=== PATIENT | male | born 1955 | race Caucasian/White ===

== ENCOUNTER 2021-07-15 15:07 | Emergency (ER) | payer OTHER ==
--- NOTE | 2021-07-15 15:29 | ERPHSYRPT ---
- History of Present Illness Time Seen by Provider: 07/15/21 15:15 Source: patient Exam Limitations: no limitations Patient Subjective Stated Complaint: pt here for laceration to left side of head, states a grain bin fan fell on hes head, stats it knocked him down, no loc Triage Nursing Assessment: pt alert, walked in, resp easy, skin w/d/p, has 3 1/2 laceration to left side of head, no active bleeding. has skin tears to left arm and wrist Physician History: This is a 66-year-old white male who suffered a laceration to his scalp on the left side when a fan from his green vehicle came apart and hit him in the head. He also has some abrasions and skin tears to the dorsal aspect of his left hand and wrist. Patient states he did not lose consciousness. He is not on any medication he states his tetanus status is up-to-date. Occurred: just prior to arrival Severity: mild Head Injury Location: parietal (Left side) Method of Injury: other (Equipment came apart hitting him in the head from his grain vehicle) Loss of Consciousness: no loss of consciousness Associated Symptoms: denies symptoms Allergies/Adverse Reactions: No Known Drug Allergies Allergy (Verified 07/15/21 15:16) Home Medications: No Home Meds [No Home Meds] 1 shirley VIKTOR 03/29/15 [History] Hx Tetanus, Diphtheria Vaccination/Date Given: No Hx Influenza Vaccination/Date Given: No Hx Pneumococcal Vaccination/Date Given: No Travel Risk - International Travel Have you traveled outside of the country in past 3 weeks: No - Coronavirus Screening Are you exhibiting any of the following symptoms?: No Close contact with a COVID-19 positive Pt in past 14-21 Days: No - Vaccine Status Have you recieved a Covid-19 vaccination: Yes 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 Dates if Unknown: ? - Review of Systems Constitutional: No Symptoms Eyes: No Symptoms Ears, Nose, & Throat: No Symptoms Respiratory: No Symptoms Cardiac: No Symptoms Abdominal/Gastrointestinal: No Symptoms Genitourinary Symptoms: No Symptoms Musculoskeletal: No Symptoms Skin: Other (Laceration left side scalp, abrasions to dorsal aspect left hand and wrist) Neurological: No Symptoms Psychological: No Symptoms Endocrine: No Symptoms Hematologic/Lymphatic: No Symptoms Immunological/Allergic: No Symptoms All Other Systems: Reviewed and Negative - Past Medical History Pertinent Past Medical History: No GI Medical History: Hernia - Past Surgical History Past Surgical History: Yes Gastrointestinal: Hernia Repair Other Surgical History: surg to jaw - Social History Smoking Status: Never smoker Exposure to second hand smoke: No Drug Use: none Patient Lives Alone: No - Nursing Vital Signs Nursing Vital Signs: Initial Vital Signs Temperature 97.0 F 07/15/21 15:13 Pulse Rate 70 07/15/21 15:13 Respiratory Rate 16 07/15/21 15:13 Blood Pressure 127/80 07/15/21 15:13 O2 Sat by Pulse Oximetry 95 07/15/21 15:13 Pain Scale Pain Intensity 0 - Lena Coma Score Best Eye Response (Lena): (4) open spontaneously Best Verbal Response (Woodson): (5) oriented Best Motor Response (Woodson): (6) obeys commands Woodson Total: 15 - Physical Exam General Appearance: no apparent distress, alert, anxiety Head Injury: active bleeding (3-1/2 inch incision left parietal scalp.), tenderness Eye Exam: bilateral eye: normal inspection, PERRL, EOMI ENT Exam: airway nml, nml ext.inspection, No evidence of ENT injury Neck Exam: supple, trachea midline, full range of motion, normal alignment, normal inspection Cardiovascular/Respiratory Exam: chest non-tender, no respiratory distress Gastrointestinal/Abdominal Exam: non tender Rectal Exam: not done Back Exam: normal range of motion, No CVA tenderness, No vertebral tenderness Extremity Exam: normal range of motion (Abrasions, multiple dorsal aspect left hand and wrist) Mental Status Exam: alert, oriented x 3, 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 Evaluation was performed to the base there was slow oozing from skin edge.) Irrigated: Yes Hibiclens Prep: Yes Wound Repaired With: Lizy (Total of 9 lizy were used to approximate the skin edges) - Course Nursing assessment & vital signs reviewed: Yes Ordered Tests: Active Orders 24 hr Category Date Time Status HEAD WITHOUT CONTRAST [CT] Stat Exams 07/15/21 15:31 Completed - Progress Progress: improved, pain not gone completely Progress Note: 07/15/21 16:47 CAT scan of the head without contrast shows no intracranial abnormality. There is no acute fractures. Counseled pt/family regarding: diagnosis, need for follow-up, rad results - Departure Departure Disposition: Home Clinical Impression: Head injury, Scalp laceration Condition: Stable Critical Care Time: No Referrals: DOCTOR,NO FAMILY [Primary Care Provider] - Additional Instructions: Keep current dressing in place. May remove dressings in 24 hours. After 24 hours may wash each of the sites with soap and water and apply thin layer of antibiotic ointment of choice daily. Continue the same process daily. Staple removal in 8 to 10 days. Prescriptions: Hydrocodone/APAP 5/325 [[place] 5/325 mg] 1 each PO Q8H PRN PRN #6 tablet MDD 3 PRN Reason: Pain
--- NOTE | 2021-07-15 16:45 | XRAY ---
Indication: Head injury. Multiple contiguous axial images obtained through the head without contrast. Comparison: None Age-appropriate global atrophy. No acute intracranial hemorrhage, abnormal extra-axial fluid collection, or mass effect. Fourth ventricle is midline without hydrocephalus. Left vertex demonstrates multiple scalp cutaneous clips. Bony calvarium intact. Incidental old left zygomatic arch fracture with fixation plate/screws. Inferior maxillary sinuses demonstrate mild mucosal thickening bilaterally. Remaining paranasal sinuses and mastoid air cells are clear. Impression: Left vertex scalp laceration. No acute intracranial abnormalities or acute fractures. Incidental bilateral maxillary sinus disease.
[2021-07-15 17:02] VITALS: BP 126/82; PULSE 88; O2SAT 97
== END 2021-07-15 17:03 | disposition home or self-care (01) ==
LOC: ED 15:07
DX: S01.01XA Laceration without foreign body of scalp, initial encounter (principal)
CPT/HCPCS: 12004; 70450; 99283

== ENCOUNTER 2022-11-30 13:36 | Emergency (ER) | payer MEDICARE ==
[2022-11-30] MEDS ORDERED: XYLOCAINE 1% HCL 20 ML MDV ONE ×2 (13:45→14:13)
[2022-11-30] MEDS ORDERED: XYLOCAINE 1% HCL 20 ML MDV IJ ONE (13:46)
[2022-11-30] MEDS: BACIGUENT PACKET TP ONE ×2 (14:00→14:12)
[2022-11-30] MEDS ORDERED: BACIGUENT PACKET ONE (14:00)
[2022-11-30] MEDS ORDERED: Rocephin 1000 MG INJ IM ONE (14:08)
[2022-11-30] MEDS ORDERED: Rocephin 1000 MG INJ ONE (14:12)
--- NOTE | 2022-11-30 14:15 | ERPHSYRPT ---
- History of Present Illness Time Seen by Provider: 11/30/22 14:15 Exam Limitations: no limitations Patient Subjective Stated Complaint: Laceration to right basurto. Patient states he cut it on some medal. Triage Nursing Assessment: Patient ambulated back to ER. He is alert and oriented. No SOB. 2 bandaids noted to right basurto. Bandaids removed. 3cm X 0.6cm laceration noted. Small amount of active bleeding. Physician History: Patient is a 67-year-old male presents to our ED with his for evaluation of puncture wound with laceration to the right anterior basurto. Injury occurred just prior to arrival. Patient denies foreign body sensation. He declined a x-ray to look for foreign body. Patient states that the metal that lacerated/created the puncture wound is thick and would not yield a residual/foreign body into his tissue. Therefore patient declined x-ray. Pain described as an ache that is localized. No radiation. Injury occurred just prior to arrival. Patient had a similar wound on the contralateral leg which was treated at home. Tetanus is up-to-date. No other injuries reported. Patient/ voiced no other complaints or concerns at this time. Portions of this note were created with voice recognition technology. There may be grammatical, spelling, punctuation or sound alike errors Timing/Duration: today Severity: moderate Modifying Factors: Improves With: nothing Associated Symptoms: denies symptoms Allergies/Adverse Reactions: No Known Drug Allergies Allergy (Verified 11/30/22 13:45) Home Medications: Pantoprazole 20 mg [Protonix 20MG Tablet] 1 tab PO DAILY 11/30/22 [History] Hx Tetanus, Diphtheria Vaccination/Date Given: No Hx Influenza Vaccination/Date Given: No Hx Pneumococcal Vaccination/Date Given: No Immunizations Up to Date: No Travel Risk - International Travel Have you traveled outside of the country in past 3 weeks: No - Coronavirus Screening Are you exhibiting any of the following symptoms?: No Close contact with a COVID-19 positive Pt in past 14-21 Days: No - Vaccine Status Have you recieved a Covid-19 vaccination: Yes 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 Dates if Unknown: ? - Review of Systems Constitutional: No Symptoms, No Fever, No Chills Eyes: No Symptoms Ears, Nose, & Throat: No Symptoms Respiratory: No Symptoms, No Cough, No Dyspnea Cardiac: No Symptoms, No Chest Pain, No Edema, No Syncope Abdominal/Gastrointestinal: No Symptoms, No Abdominal Pain, No Nausea, No Vomiting, No Diarrhea Genitourinary Symptoms: No Symptoms, No Dysuria Musculoskeletal: No Symptoms, No Back Pain, No Neck Pain Skin: No Symptoms, No Rash Neurological: No Symptoms, No Dizziness, No Focal Weakness, No Sensory Changes Psychological: No Symptoms Endocrine: No Symptoms Hematologic/Lymphatic: No Symptoms Immunological/Allergic: No Symptoms All Other Systems: Reviewed and Negative - Past Medical History Pertinent Past Medical History: Yes GI Medical History: Hernia Other Medical History: broken left jaw - Past Surgical History Past Surgical History: Yes Gastrointestinal: Hernia Repair Other Surgical History: left surg to jaw - Social History Smoking Status: Never smoker Exposure to second hand smoke: No Drug Use: none Patient Lives Alone: No - Nursing Vital Signs Nursing Vital Signs: Initial Vital Signs Temperature 98.1 F 11/30/22 13:46 Pulse Rate 70 11/30/22 13:46 Respiratory Rate 17 11/30/22 13:46 Blood Pressure 133/80 11/30/22 13:46 O2 Sat by Pulse Oximetry 96 11/30/22 13:46 Pain Scale Pain Intensity 3 - Physical Exam General Appearance: no apparent distress, alert Eye Exam: PERRL/EOMI, eyes nml inspection Neck Exam: normal inspection, full range of motion Respiratory Exam: normal breath sounds, airway intact, No respiratory distress, No stridor Cardiovascular Exam: regular rate/rhythm, normal peripheral pulses, capillary refill <2 sec Back Exam: normal inspection, normal range of motion, No CVA tenderness, No v ertebral tenderness Extremity Exam: normal inspection, normal range of motion, pelvis stable Neurologic Exam: alert, oriented x 3, cooperative, normal mood/affect, sensation nml, No motor deficits Skin Exam: normal color, warm, dry, other (3 cm laceration with puncture wound to the right anterior middle third basurto), No rash Lymphatic Exam: No adenopathy SpO2 Interpretation: normal SpO2: 96 O2 Delivery: Room Air Procedures - Laceration/Wound Repair Other Time of Procedure: 14:12 Wound Location: Right (Right leg) Wound Length (cm): 3 Wound's Depth, Shape: superficial Wound Explored: clean Irrigated: Yes Hibiclens Prep: Yes Anesthesia: 1% Lidocaine Volume Anesthetic (ccs): 5 Wound Debrided: No debridement indicated Wound Repaired With: Steri-strips Progress: 11/30/22 14:14 Patient reassessed. Patient neurovascular intact pre and post procedure. - Course Nursing assessment & vital signs reviewed: Yes Ordered Tests: Active Orders 24 hr Category Date Time Status Sutures STAT Care 11/30/22 13:55 Active Wound Care STAT Care 11/30/22 13:55 Active Medication Summary Discontinued Medications Generic Name Dose Route Start Last Admin Trade Name Dann PRN Reason Stop Dose Admin Bacitracin Zinc 0.9 each 11/30/22 13:59 11/30/22 14:00 Bacitracin Packet 1 Each Pckt TP 11/30/22 14:00 0.9 each STAT ONE Administration Bacitracin Zinc Confirm 11/30/22 14:00 Bacitracin Packet 1 Each Pckt Administered 11/30/22 14:01 Dose 1 each .ROUTE .STK-MED ONE Ceftriaxone Sodium 1,000 mg 11/30/22 14:08 Ceftriaxone Sodium 1000 Mg Inj Vial IM 11/30/22 14:09 STAT ONE Lidocaine HCl 5 ml 11/30/22 13:46 11/30/22 13:47 Lidocaine Hcl 1% 20 Ml Mdv 20 Ml Ml IJ 11/30/22 13:47 5 ml STAT ONE Administration Lidocaine HCl Confirm 11/30/22 13:45 Lidocaine Hcl 1% 20 Ml Mdv 20 Ml Ml Administered 11/30/22 13:46 Dose 5 ml .ROUTE .STK-MED ONE - Progress Progress: improved Progress Note: 67-year-old male presents to our ED with a puncture wound/superficial laceration to the right anterior basurto. Tetanus up-to-date. Due to the fact that patient has a puncture wound we will not suture the wound. Laceration closed with Steri-Strips. Patient received IM Rocephin in our ED. A prescription for Keflex forwarded to patient's pharmacy. Patient's presenting problem is acute. Complexity of problems addressed is low. Problem is acute and uncomplicated. No critical care time. Age gender, PMH/PQ , (co-morbidities that complicate presentation) , med class, PSH, (smoker) method of arrival, CC (acute, chronic or acute on chronic), State COPA level and why or if critical. vitals, Significant ROS/PE findings, working diagnoses, Complexity of data reviewed and analyzed is none. Diagnosis was made based on history and physical exam. Risk of complication and or risk of morbidity/mortality of patient management is moderate. Patient received IM Rocephin. Patient received local injection for pain control. Lidocaine 1% used for pain control. Patient agrees to follow-up with his primary care doctor within 48 hours for reevaluation. Vital stable. Shared decision making model implemented for plan of care. 11/30/22 14:24 Counseled pt/family regarding: diagnosis, need for follow-up - Departure Departure Disposition: Home Clinical Impression: Puncture wound, Laceration Condition: Stable Critical Care Time: No Referrals: JACKIE PITTS MD [Primary Care Provider] - Follow up/PCP as directed Additional Instructions: Discharge/Care Plan FRANCIA CAO was seen on 11/30/22 in the Emergency Room. The patient was counseled regarding Diagnosis,Lab results, Imaging studies, need for follow up and when to return to the Emergency Room. Prescriptions given: Discharge Note I have spoken with the patient and/or caregivers. I have explained the patient's condition, diagnosis and treatment plan based on the information available to me at this time. I have answered the patient's and/or caregiver's questions and addressed any concerns. The patient and/or caregivers have as good understanding of the patient's diagnosis, condition and treatment plan as can be expected at this point. The vital signs have been stable. The patient's condition is stable and appropriate for discharge from the emergency department. The patient will pursue further outpatient evaluation with the primary care physician or other designated or consulting physician as outlined in the discharge instructions. The patient and/or caregivers are agreeable to this plan of care and follow-up instructions have been explained in detail. The patient and/or caregivers have received these instruction. The patient/and or caregivers are aware that any significant change in condition or worsening of symptoms should prompt an immediate return to this or the closest emergency department or call 911. Prescriptions: Cephalexin Mh 500 mg [Keflex 500 mg] 500 mg PO TID #21 cap
[2022-11-30 14:31] VITALS: BP 134/88; PULSE 68; O2SAT 97
== END 2022-11-30 14:35 | disposition home or self-care (01) ==
LOC: ED 13:36
DX: S81.811A Laceration without foreign body, right lower leg, initial encounter (principal); S81.831A Puncture wound without foreign body, right lower leg, initial encounter; W26.9XXA Contact with unspecified sharp object(s), initial encounter
CPT/HCPCS: 96372; 99283; J0696; A9270-GY

== ENCOUNTER 2024-11-13 14:24 | Emergency (ER) | payer MEDICARE ==
[2024-11-13 15:38] VITALS: TEMP 97.7
[2024-11-13 16:05] VITALS: BP 118/72; PULSE 71; RESP 16; O2SAT 97
[2024-11-13] MEDS ORDERED: BACIGUENT PACKET ONE (17:23)
[2024-11-13] MEDS: BACIGUENT PACKET TP ONE (17:25)
--- NOTE | 2024-11-13 17:26 | ERPHSYRPT ---
- History of Present Illness Time Seen by Provider: 11/13/24 15:16 Source: patient Exam Limitations: no limitations Patient Subjective Stated Complaint: "I was walking in the weeds and cut my leg open on something". Triage Nursing Assessment: Pt appears to ER with a [id number] laceration to left knee. Bleeding controlled. Denies pain. Normal ROM. Pt states he was walking in the weeds and tripped and fell down causing his knee to strike an un known sharp object causing the laceration to occur. Pt is alert and oriented x 3. Skin is pink, warm, and dry. Respirations are unlabored. Pt is communicable and oriented x 3. Believes michael is UTD, had another lacerations 2-3 years ago. Physician History: 69-year-old male updated with tetanus presented in the ER with a laceration left medial knee after he tripped on something and fell in the [place]. Patient does not know exactly what date he hit. There was bleeding initially but stopped with applying pressure. Patient has no difficulty ambulation. No bony tender ness. No injury anywhere else. 3 cm curved laceration right medial knee with exposed tendon and no obvious laceration. Fascia is cut. Cannot probe into the joint. No patellar or tibia/fibula/femoral condyle tenderness. Intact range of motion. Distal neurovascular intact. I have shared the picture of the wound, history with Dr. Alanis, recommended closure and will place patient on the antibiotics and he will evaluate patient outpatient. I have recommended x-ray left knee but patient/ do not want it and they do understand the risk of leaving foreign body in or any other acute findings which could be missed. Thoroughly washed and laceration is repaired. Placed in Hoang wrap. Started on Keflex and outpatient follow-up recommended. Discussed signs symptoms of wound infection needing return to ER which he seems understanding. Stable for discharge. Allergies/Adverse Reactions: No Known Drug Allergies Allergy (Verified 11/13/24 15:38) Home Medications: Pantoprazole 20 mg [Protonix 20MG Tablet] 20 mg pe PO DAILY 11/13/24 [History] Hx Tetanus, Diphtheria Vaccination/Date Given: Yes (believes so) Hx Influenza Vaccination/Date Given: No Hx Pneumococcal Vaccination/Date Given: No Immunizations Up to Date: No Travel Risk - International Travel Have you traveled outside of the country in past 3 weeks: No - Emerging Infectious Disease Are you exhibiting symptoms associated with any current EIDs: No - Review of Systems Constitutional: No Symptoms Ears, Nose, & Throat: No Symptoms Respiratory: No Symptoms Cardiac: No Symptoms Abdominal/Gastrointestinal: No Symptoms Musculoskeletal: Fall, Injury, Joint Pain Skin: Skin Lesions Neurological: No Symptoms - Past Medical History Pertinent Past Medical History: Yes Neurological History: No Pertinent History ENT History: No Pertinent History Cardiac History: No Pertinent History Respiratory History: No Pertinent History Endocrine Medical History: No Pertinent History Musculoskeletal History: No Pertinent History GI Medical History: Hernia History: No Pertinent History Psycho-Social History: No Pertinent History Male Reproductive Disorders: No Pertinent History Other Medical History: broken left jaw - Past Surgical History Past Surgical History: Yes Neuro Surgical History: No Pertinent History Cardiac: No Pertinent History Respiratory: No Pertinent History Gastrointestinal: Hernia Repair Genitourinary: No Pertinent History Musculoskeletal: No Pertinent History Male Surgical History: No Pertinent History Other Surgical History: surg to jaw - Social History Smoking Status: Never smoker Exposure to second hand smoke: No Drug Use: none - Social Determinants of Health Will the patient participate in the screening: Yes Do you worry about a steady place to live?: No Do you have any problems with any of the following?: No known problems In the past 12 months,have you had to go without utilities?: No Transportation Issues: No Has anyone in your support network made you feel unsafe?: No Have you or anyone in your house had to go w/o enough food: No - Nursing Vital Signs Nursing Vital Signs: Initial Vital Signs Pulse Rate 72 11/13/24 15:00 Respiratory Rate 17 11/13/24 15:00 Blood Pressure 113/71 11/13/24 15:00 O2 Sat by Pulse Oximetry 95 11/13/24 15:00 Pain Scale Pain Intensity 0 - Physical Exam General Appearance: no apparent distress Neck Exam: normal inspection, full range of motion Cardiovascular/Respiratory Exam: normal breath sounds, regular rate/rhythm Knees Exam: right knee: non-tender, normal inspection, normal range of motion, no evidence of injury, left knee: pain, soft tissue tenderness (Centimeter curved laceration medial.) Neuro/Tendon Exam: normal sensation, normal motor functions, normal tendon functions Mental Status Exam: alert, oriented x 3, cooperative Skin Exam: normal color SpO2 Interpretation: normal SpO2: 97 O2 Delivery: Room Air Procedures - Laceration/Wound Repair Left Medial Knee Time of Procedure: 17:22 Wound Location: Left, lower leg (knee) Wound Length (cm): 3 Wound's Depth, Shape: into muscle, flap Wound Explored: clean Irrigated: Yes Hibiclens Prep: Yes Anesthesia: 1% Lidocaine Volume Anesthetic (ccs): 6 Wound Repaired With: sutures Suture Size/Type: 3-0, prolene Number of Sutures: 5 Layer Closure?: No Sterile Dressing Applied?: Yes Splint Applied?: No Sling Applied?: No Ordered Tests: Medication Summary Discontinued Medications Generic Name Dose Route Start Last Admin Trade Name Freq PRN Reason Stop Dose Admin Bacitracin Zinc 0.9 each 11/13/24 17:20 11/13/24 17:25 Bacitracin Packet 1 Each Pckt TP 11/13/24 17:21 0.9 each STAT ONE Administration Bacitracin Zinc Confirm 11/13/24 17:23 Bacitracin Packet 1 Each Pckt Administered 11/13/24 17:24 Dose 1 each .ROUTE .[employer]-MED ONE - Progress Progress: improved Progress Note: 11/13/24 17:23 69-year-old male updated with tetanus presented in the ER with a laceration left medial knee after he tripped on something and fell in the [place]. Patient does not know exactly what date he hit. There was bleeding initially but stopped with applying pressure. Patient has no difficulty ambulation. No bony tenderness. No injury anywhere else. 3 cm curved laceration right medial knee with exposed tendon and no obvious laceration. Fascia is cut. Cannot probe into the joint. No patellar or tibia/fibula/femoral condyle tenderness. Intact range of motion. Distal neurovascular intact. I have shared the picture of the wound, history with Dr. Alanis, recommended closure and will place patient on the antibiotics and he will evaluate patient outpatient. I have recommended x-ray left knee but patient/ do not want it and they do understand the risk of leaving foreign body in or any other acute findings which could be missed. Thoroughly washed and laceration is repaired. Placed in Hoang wrap. Started on Keflex and outpatient follow-up recommended. Discussed signs symptoms of wound infection needing return to ER which he seems understanding. Stable for discharge. Complexity of problems addressed:Acute moderate. Amount of/complexity of data reviewed generalized: Limited Risk of complications associated with patient management: Mild to moderate Counseled pt/family regarding: diagnosis, need for follow-up Medical Desision Making - Independent Historian Additional History obtained from: Spouse - Discussion of managment Care discussed with:: specialist (Dr. Alanis orthopedic surgeon) Agreed on:: Treatment plan, need for follow-up Will see patient: In office - Diagnostic Testing Diagnostic test were ordered, analyzed, and reviewed by me: No - Risk of complications The pt has a mod risk of morbidity or mortality based on: Need for prescription drug management, Need for minor surgical intervention in patient with know risk factors - Departure Departure Disposition: Home Clinical Impression: Laceration of knee Condition: Stable Critical Care Time: No Referrals: JACKIE PITTS MD [Primary Care Provider] - Follow up with PCP 1 day PAULA ALANIS MD [ACTIVE STAFF] - Follow up/PCP as directed (Call for appointment for reevaluation in 1 to 2 days) Instructions: Laceration Repair With Stitches (DC) Additional Instructions: Temperature ice application. Avoid exertional activities. Takes pain medications as needed. Follow-up with primary care/orthopedics for reevaluation. Return to ER for increasing pain swelling redness, difficulty movements or if develop fever chills etc. Prescriptions: Hydrocodone/Acetaminophen [Hydrocodone-Acetamin 5-325 mg] 1 tab PO Q6HPRN PRN 3 Days #7 tablet MDD 4 PRN Reason: Pain Cephalexin Mh 500 mg [Keflex 500 mg] 500 mg PO TID #21 cap
== END 2024-11-13 18:00 | disposition home or self-care (01) ==
LOC: ED 14:24
DX: S81.012A Laceration without foreign body, left knee, initial encounter (principal); W01.10XA Fall on same level from slipping, tripping and stumbling with subsequent striking against unspecified object, initial encounter; Z79.891 Long term (current) use of opiate analgesic; Z79.899 Other long term (current) drug therapy
CPT/HCPCS: 12002; 99282; 99283; A9270-GY

== ENCOUNTER 2025-06-23 18:01 | Emergency (ER) | payer MEDICARE ==
--- NOTE | 2025-06-23 18:33 | ERPHSYRPT ---
- History of Present Illness Time Seen by Provider: 06/23/25 18:29 Source: patient Exam Limitations: no limitations Patient Subjective Stated Complaint: patient was grinding metal with normal glasses on, no safety glasses and got a piece of metal in right eye Triage Nursing Assessment: patient presents to ed via private vehicle, patient able to ambulate into ed without complication, patient alert and oriented x 4, patient's skin p/w/d, patient has redness noted to right eye, small black foreign object noted to right eye upon examination, patient denies blurry vision Physician History: 70-year-old male history of a hernia, on pantoprazole presents to our ED for evaluation of pain to his right eye. Patient reports that he was grinding metal with his corrective glasses. He was not wearing safety goggles. Patient reports that he has a piece of metal impaled in his eye. No other injuries reported. Patient has some blurriness in his right eye and foreign body sensation. Patient voices no other complaints or concerns at this time. Tetanus is up-to-date Portions of this note were created with voice recognition technology. There may be grammatical, spelling, punctuation or sound alike errors Timing/Duration: today Location: right eye Severity: none Apparent Injury: no Associated Symptoms: pain Visual Assistive Devices: Glasses Chemical Exposure: No Trauma: No Welding Arc/Tanning Bed Exposure: No Allergies/Adverse Reactions: No Known Drug Allergies Allergy (Verified 06/23/25 18:07) Home Medications: Pantoprazole 20 mg [Protonix 20MG Tablet] 20 mg pe PO DAILY 11/13/24 [History] Hx Tetanus, Diphtheria Vaccination/Date Given: Yes Hx Influenza Vaccination/Date Given: No Hx Pneumococcal Vaccination/Date Given: No Travel Risk - International Travel Have you traveled outside of the country in past 3 weeks: No - Emerging Infectious Disease Are you exhibiting symptoms associated with any current EIDs: No - Review of Systems All Other Systems: Reviewed and Negative - Past Medical History Pertinent Past Medical History: Yes Neurological History: No Pertinent History ENT History: No Pertinent History Cardiac History: No Pertinent History Respiratory History: No Pertinent History Endocrine Medical History: No Pertinent History Musculoskeletal History: No Pertinent History GI Medical History: Hernia History: No Pertinent History Psycho-Social History: No Pertinent History Male Reproductive Disorders: No Pertinent History Other Medical History: broken left jaw - Past Surgical History Past Surgical History: Yes Neuro Surgical History: No Pertinent History Cardiac: No Pertinent History Respiratory: No Pertinent History Gastrointestinal: Hernia Repair Genitourinary: No Pertinent History Musculoskeletal: No Pertinent History Male Surgical History: No Pertinent History Other Surgical History: surg to jaw - Social History Smoking Status: Never smoker Exposure to second hand smoke: No Drug Use: none - Social Determinants of Health Will the patient participate in the screening: Yes Do you worry about a steady place to live?: No Do you have any problems with any of the following?: No known problems In the past 12 months,have you had to go without utilities?: No Transportation Issues: No Has anyone in your support network made you feel unsafe?: No Have you or anyone in your house had to go w/o enough food: No - Nursing Vital Signs Nursing Vital Signs: Initial Vital Signs Temperature 97.5 F 06/23/25 18:01 Pulse Rate 74 06/23/25 18:01 Respiratory Rate 16 06/23/25 18:01 Blood Pressure 121/74 06/23/25 18:01 O2 Sat by Pulse Oximetry 98 06/23/25 18:01 Pain Scale Pain Intensity 3 - Physical Exam General Appearance: no apparent distress Vision Acuity Degree Evaluation Phase: Corrected Vision Acuity Right Eye: 20/20 Vision Acuity Left Eye: 20/20 Intraocular Pressure (Tonopen): both eyes (Intraocular pressure on the right is 12. Intraocular pressure on the left is 11) Eye Exam: right eye: corneal abrasion, foreign body (Metal just medial to the visual axis on the cornea negative Sidel sign), bilateral eye: normal inspection, PERRL, EOMI Ears, Nose, Throat Exam: normal ENT inspection, pharynx normal Neck Exam: normal inspection, supple, full range of motion Respiratory Exam: normal breath sounds Extremity Exam: normal inspection, normal range of motion Neurologic: alert, oriented x 3, cooperative Skin Exam: normal color, warm, dry SpO2 Interpretation: normal SpO2: 96 O2 Delivery: Room Air - Course Nursing assessment & vital signs reviewed: Yes Ordered Tests: Medication Summary Discontinued Medications Generic Name Dose Route Start Last Admin Trade Name Freq PRN Reason Stop Dose Admin Erythromycin 1 gm 06/23/25 18:58 06/23/25 19:12 Erythromycin Base 1 Gm Tube Eye Ointment OP 06/23/25 18:59 1 gm STAT STA Administration Erythromycin Confirm 06/23/25 19:11 Erythromycin Base 1 Gm Tube Eye Ointment Administered 06/23/25 19:12 Dose 1 gm .ROUTE .STK-MED ONE Fluorescein Sodium Confirm 06/23/25 18:43 Fluorescein Sodium 1 Mg/Strip Strip Administered 06/23/25 18:44 Dose 1 mg OP .STK-MED ONE Irrigating Solution Confirm 06/23/25 18:47 Sod Borate/Boric Ac/Water/Nacl 118 Ml Irrig.Soln Administered 06/23/25 18:48 Dose 118 ml OP .STK-MED ONE Irrigating Solution 118 ml 06/23/25 19:06 06/23/25 19:08 Sod Borate/Boric Ac/Water/Nacl 118 Ml Irrig.Soln OP 06/23/25 19:07 118 ml ONCE STA Administration Ketorolac Tromethamine 30 mg 06/23/25 20:04 06/23/25 20:10 Ketorolac Tromethamine 30 Mg/Ml Inj IM 06/23/25 20:05 30 mg STAT ONE Administration Ketorolac Tromethamine Confirm 06/23/25 20:07 Ketorolac Tromethamine 30 Mg/Ml Inj Administered 06/23/25 20:08 Dose 30 mg .ROUTE .STK-MED ONE Tetracaine HCl Confirm 06/23/25 18:37 Tetracaine Hcl/Pf 4 Ml Bottle Administered 06/23/25 18:38 Dose 4 ml OP .STK-MED ONE Tetracaine HCl 4 ml 06/23/25 18:56 06/23/25 19:09 Tetracaine Hcl/Pf 4 Ml Bottle OP 06/23/25 18:57 4 ml STAT STA Administration Tetracaine HCl 4 ml 06/23/25 19:06 06/23/25 19:10 Tetracaine Hcl/Pf 4 Ml Bottle OP 06/23/25 19:07 Not Given STAT STA - Progress Progress: improved Progress Note: 70-year-old male presents to our ED for evaluation of foreign body sensation in the right eye after grinding metal. Physical exam reveals a small rashaad of metal on the cornea just medial to the visual axis. No acute change in vision. Negative Sidel sign. We contacted Dr. Rivas urban anthropologist from [facility]. He will see patient tomorrow this morning 06/24/2025 at 8 AM. Patient and his at bedside agree to follow-up as planned. Patient involved eye was irrigated and erythromycin ophthalmic ointment applied. Eye pressures were within normal limits. We spoke to Dr. Brar at approximately 8:20 PM 06/23/2025 Patient received Toradol for eye discomfort. History obtained from patient and who is at the bedside. Differential diagnose include foreign body, corneal abrasion, globe rupture Portions of this note were created with voice recognition technology. There may be grammatical, spelling, punctuation or sound alike errors Complexity of problem addressed is moderate acute complicated. No critical care time. Complexity of data reviewed and analyzed is none. No specialized testing ordered. Diagnosis based on history and physical exam. Risk of complication and or risk of morbidity/mortality of patient management is moderate. We consulted with ophthalmology. Vital stable. Time spent to discharge patient approximately 15 minutes. Plan of care established for shared decision making. No social determinants of health present to impede follow-up. Portions of this note were created with voice recognition technology. There may be grammatical, spelling, punctuation or sound alike errors 06/24/25 07:11 Counseled pt/family regarding: diagnosis, need for follow-up - Departure Departure Disposition: Home Clinical Impression: Eye foreign body Condition: Stable Critical Care Time: No Referrals: JACKIE PITTS MD [Primary Care Provider, INTERNAL MEDICINE] - Follow up/PCP as directed Instructions: Foreign Body in Eye ED, Corneal abrasion - ED discharge instructions
[2025-06-23] MEDS ORDERED: TETRACAINE 0.5% STERI-UNIT SOL OP ONE (18:37)
[2025-06-23] MEDS ORDERED: Fluor-I-Strip/Ful-Flo OP ONE (18:43)
[2025-06-23] MEDS ORDERED: COLLYRIUM/ EYE RELIEF EYE WASH SOLUTION OP ONE (18:47)
[2025-06-23] MEDS: COLLYRIUM/ EYE RELIEF EYE WASH SOLUTION OP STA (19:08)
[2025-06-23] MEDS: TETRACAINE 0.5% STERI-UNIT SOL OP STA ×2 (19:09→19:10)
[2025-06-23] MEDS ORDERED: Erythromycin 1 GM ONE (19:11)
[2025-06-23] MEDS: Erythromycin 1 GM OP STA (19:12)
[2025-06-23] MEDS ORDERED: TORAdol 30 mg Injection ONE (20:07)
[2025-06-23] MEDS: TORAdol 30 mg Injection IM ONE (20:10)
[2025-06-23 20:28] VITALS: PULSE 56; TEMP 98.2
[2025-06-23 20:41] VITALS: BP 118/77; RESP 18; O2SAT 96
== END 2025-06-23 20:45 | disposition home or self-care (01) ==
LOC: ED 18:01
DX: T15.01XA Foreign body in cornea, right eye, initial encounter (principal); W44.D0XA Magnetic metal object unspecified, entering into or through a natural orifice, initial encounter; Z79.899 Other long term (current) drug therapy

== ENCOUNTER 2025-07-20 14:03 | Emergency (ER) | payer MEDICARE ==
[2025-07-20 14:20] VITALS: RESP 20; TEMP 98.2
[2025-07-20] MEDS ORDERED: XYLOCAINE 1% HCL 20 ML MDV ONE (14:21)
[2025-07-20] MEDS ORDERED: Adacel Vial IM ONE (14:23)
--- NOTE | 2025-07-20 14:24 | ERPHSYRPT ---
- History of Present Illness Patient Subjective Stated Complaint: patient busted middle digit on left hand open Triage Nursing Assessment: patient came into ED he smashed his middle digit working on combine. he blew the whole nail into pieces. . patietn is alert nad orientedx3, able to ambulate by self, skint warm dry and intact other than injured area. 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, the fingernail was crushed and had a partial avulsion, no other injuries, tetanus not up-to-date Occurred: just prior to arrival Method of Injury: direct blow Quality: constant Severity of Pain-Max: moderate Severity of Pain-Current: moderate Extremities Pain Location: 3rd finger: left Modifying Factors: Improves With: nothing Associated Symptoms: none Allergies/Adverse Reactions: No Known Drug Allergies Allergy (Verified 07/20/25 14:15) Hx Tetanus, Diphtheria Vaccination/Date Given: Yes Hx Influenza Vaccination/Date Given: No Hx Pneumococcal Vaccination/Date Given: No Travel Risk - International Travel Have you traveled outside of the country in past 3 weeks: No - Emerging Infectious Disease Are you exhibiting symptoms associated with any current EIDs: No - Past Medical History Pertinent Past Medical History: Yes Neurological History: No Pertinent History ENT History: No Pertinent History Cardiac History: No Pertinent History Respiratory History: No Pertinent History Endocrine Medical History: No Pertinent History Musculoskeletal History: No Pertinent History GI Medical History: Hernia History: No Pertinent History Psycho-Social History: No Pertinent History Male Reproductive Disorders: No Pertinent History Other Medical History: broken left jaw - Past Surgical History Past Surgical History: Yes Neuro Surgical History: No Pertinent History Cardiac: No Pertinent History Respiratory: No Pertinent History Gastrointestinal: Hernia Repair Genitourinary: No Pertinent History Musculoskeletal: No Pertinent History Male Surgical History: No Pertinent History Other Surgical History: surg to jaw - Social History Smoking Status: Never smoker Exposure to second hand smoke: No Drug Use: none - Social Determinants of Health Will the patient participate in the screening: Yes Do you worry about a steady place to live?: No Do you have any problems with any of the following?: No known problems In the past 12 months,have you had to go without utilities?: No Transportation Issues: No Has anyone in your support network made you feel unsafe?: No Have you or anyone in your house had to go w/o enough food: No - Nursing Vital Signs Nursing Vital Signs: Initial Vital Signs Temperature 98.2 F 07/20/25 14:04 Pulse Rate 54 L 07/20/25 14:04 Respiratory Rate 20 07/20/25 14:04 Blood Pressure 117/76 07/20/25 14:04 O2 Sat by Pulse Oximetry 98 07/20/25 14:04 Pain Scale Pain Intensity 8 - Physical Exam General Appearance: no apparent distress, alert Eyes, Ears, Nose, Throat Exam: normal ENT inspection Hand Exam: nail injury (LMF, partial avulsion) Mental Status Exam: alert, oriented x 3, cooperative Skin Exam: normal color, warm, dry SpO2 Interpretation: normal SpO2: 98 Procedures - Laceration/Wound Repair Left Distal Finger Time of Procedure: 16:11 Wound Location: Left, hand (Middle finger) Wound Length (cm): 1 Wound's Depth, Shape: nail-avulsed Irrigated: Yes Anesthesia: digital block, 2% Lidocaine Volume Anesthetic (ccs): 8 Suture Size/Type: 6-0, 5-0, chromic gut, ethilon Number of Sutures: 5 Progress: 07/20/25 16:13 Crush injury, nailbed completely macerated and unable to be repaired, the nailbed had been removed and then replaced and sutured in place over the nailbed with chromic gut to the paronychia and 5-0 nylon to the lateral aspects Ordered Tests: Active Orders 24 hr Category Date Time Status HAND (MINIMUM 3 VIEWS) Stat Exams 07/20/25 14:22 Completed Medication Summary Discontinued Medications Generic Name Dose Route Start Last Admin Trade Name Dann PRN Reason Stop Dose Admin Diphtheria/Tetanus/Acell Pertussis 0.5 ml 07/20/25 14:20 07/20/25 14:34 Tdap --Diph,Pertuss(Acell),Tet Vac/Pf 0.5 Ml Vial IM 07/20/25 14:21 0.5 ml .ONCE ONE Administration Diphtheria/Tetanus/Acell Pertussis Confirm 07/20/25 14:23 Tdap --Diph,Pertuss(Acell),Tet Vac/Pf 0.5 Ml Vial Administered 07/20/25 14:24 Dose 0.5 ml IM .STK-MED ONE Lidocaine HCl 10 ml 07/20/25 14:21 07/20/25 14:33 Lidocaine Hcl 2% 20 Ml Mdv IJ 07/20/25 14:22 10 ml STAT ONE Administration Lidocaine HCl Confirm 07/20/25 14:21 Lidocaine Hcl 1% 20 Ml Mdv 20 Ml Ml Administered 07/20/25 14:22 Dose 1 ml .ROUTE .STK-MED ONE Lidocaine HCl Confirm 07/20/25 14:28 Lidocaine Hcl 2% 20 Ml Mdv Administered 07/20/25 14:29 Dose 1 ml .ROUTE .STK-MED ONE - Progress Progress Note: 07/20/25 16:13 Lac repair - Departure Departure Disposition: Home Clinical Impression: Laceration of nail bed of finger Qualifiers: Encounter type: initial encounter Qualified Code(s): S61.319A - Laceration without foreign body of unspecified finger with damage to nail, initial encounter Condition: Stable Critical Care Time: No Referrals: HONORIO PURVIS MD [ACTIVE STAFF, ORTHOPEDICS] - Follow up/PCP as directed Instructions: Nail Avulsion, Crush Injury Additional Instructions: Orthopedic walk-in clinic in 3 days(8a-10a) Prescriptions: Cephalexin Mh 500 mg [Keflex 500 mg] 500 mg PO TID 7 Days #21 cap
[2025-07-20] MEDS ORDERED: XYLOCAINE 2% HCL 20 ML MDV ONE (14:28)
[2025-07-20] MEDS: XYLOCAINE 2% HCL 20 ML MDV IJ ONE (14:33)
[2025-07-20] MEDS: Adacel Vial IM ONE (14:34)
--- NOTE | 2025-07-20 14:43 | XRAY ---
Indication: Finger injury. Comparison: None 3 view left hand demonstrates distal 3rd finger soft tissue swelling/laceration without acute fracture. Elsewhere osteopenia, minimal/mild degenerative changes all IP/MCP joints, mild 1st metacarpal multangular scaphoid degenerative changes, radiocarpal joint space narrowing, and widened scapholunate interval concerning for underlying ligamentous tear. Incidental tiny soft tissue foreign bodies 4th middle phalanx/proximal 2nd metacarpal/proximal 1st phalanx/base 1st metacarpal.
[2025-07-20 15:15] VITALS: O2SAT 98
[2025-07-20 16:20] VITALS: BP 119/79
[2025-07-20 16:21] VITALS: PULSE 63
[2025-07-20] MEDS ORDERED: KEFLEX 500 MG ONE (16:30)
[2025-07-20] MEDS: KEFLEX 500 MG PO ONE (16:30)
== END 2025-07-20 16:45 | disposition home or self-care (01) ==
LOC: ED 14:03
DX: S61.313A Laceration without foreign body of left middle finger with damage to nail, initial encounter (principal); W30.0XXA Contact with combine harvester, initial encounter; Y92.79 Other farm location as the place of occurrence of the external cause; Z79.899 Other long term (current) drug therapy; Z23 Encounter for immunization